=== PATIENT | female | born 1995 | race Caucasian/White ===

== ENCOUNTER 2016-10-17 04:23 | Emergency (ER) | payer OTHER | END 2016-10-17 05:35 | disposition home or self-care (01) | LOC: ER1 04:23 | DX: L50.0 Allergic urticaria (principal); T36.4X5A Adverse effect of tetracyclines, initial encounter | CPT/HCPCS: 99282; Q0163 ==

== ENCOUNTER → 2020-11-08 | Outpatient (CLI) | payer OTHER ==
[~2020-11-08] MED LIST: ACYCLOVIR400 MG PO; AUGMENTIN 875-1 EACH PO; COLACE 100MG C100 MG PO; ERYTHROMYCIN O3.5 GM OD; FLAGYL500 MG PO; IBUPROFEN600 MG PO; KEFLEX CAP 250250 MG PO; NAPROSYN PO; NORCO 5-325 TA1 EACH PO; PERCOCET 5/325 T1 EA PO; PRENATAL VITAM1 EAC6 PO; TORADOL 10 MG T10 MG PO; VALACYCLOVIR1000 MG PO; ZOFRAN8 MG PO
== END ==
LOC: LAB 12:58
DX: Z32.00 Encounter for pregnancy test, result unknown (principal)
CPT/HCPCS: 36415; 84702

== ENCOUNTER 2020-12-13 12:06 | Emergency (ER) | payer OTHER ==
[~2020-12-13 12:06] MED LIST changes: -ERYTHROMYCIN O3.5 GM OD; -KEFLEX CAP 250250 MG PO
[2020-12-13] MEDS ORDERED: ERYTHROMYCIN O3.5 GM OD (14:05)
[2020-12-13] MEDS ORDERED: KEFLEX CAP 250250 MG PO (14:19)
== END 2020-12-13 14:35 | disposition home or self-care (01) ==
LOC: ER1 12:06
DX: S05.01XA Injury of conjunctiva and corneal abrasion without foreign body, right eye, initial encounter (principal); Z88.1 Allergy status to other antibiotic agents; Z88.5 Allergy status to narcotic agent; X58.XXXA Exposure to other specified factors, initial encounter
CPT/HCPCS: 99283

== ENCOUNTER 2021-04-09 15:13 | Emergency (ER) | payer OTHER ==
[~2021-04-09 15:13] MED LIST changes: +ERYTHROMYCIN O3.5 GM OD; +KEFLEX CAP 250250 MG PO
[2021-04-09 15:51] LABS: HEMOGLOBIN 12.6 gm/dl (12.3-15.3); RED BLOOD COUNT 4.16 M/UL (4.00-5.10)
[2021-04-09 16:13] LABS: BUN/CREATININE RATIO 11 (0-10)
[2021-04-09 20:35] LABS: ADENOVIRUS F 40/41 Not Detected (Negative); ASTROVIRUS Not Detected (Negative); CLOSTRIDIUM DIFFICILE TOX A/B Not Detected (Negative); CRYPTOSPORIDIUM Not Detected (Negative); E.COLI 0157 Not Detected (Negative); ENTAMOEBA HISTOLYTICA Not Detected (Negative); ENTEROAGGREGATIVE E.COLI (EAEC Not Detected (Negative); ENTEROPATHOGENIC E.COLI (EPEC) Not Detected (Negative); ENTEROTOXIGENIC E.COLI (ETEC) Not Detected (Negative); GIARDIA LAMBLIA Not Detected (Negative); NOROVIRUS GI/GII Not Detected (Negative); PLESIOMONAS SHIGELLOIDES Not Detected (Negative); ROTOVIRUS A Not Detected (Negative); SALMONELLA Not Detected (Negative); SAPOVIRUS Not Detected (Negative); SHIG/ENTEROINVAS.ECOLI (EIEC) Not Detected (Negative); SHIGA-LIK TOX.PRO.E.COLI (STEC Not Detected (Negative); VIBRIO Not Detected (Negative); VIBRIO CHOLERAE Not Detected (Negative); YERSINIA ENTEROCOLITICA Not Detected (Negative)
[2021-04-10 09:42] LABS: CAMPYLOBACTER DETECTED (Negative)
== END 2021-04-09 18:55 | disposition home or self-care (01) ==
LOC: ER1 15:13
PROVIDERS: Nurse Practitioner; Preventive Medicine Occupational Medicine
DX: O99.891 Other specified diseases and conditions complicating pregnancy (principal); R19.7 Diarrhea, unspecified; Z20.822 Contact with and (suspected) exposure to COVID-19; Z3A.26 26 weeks gestation of pregnancy; Z88.1 Allergy status to other antibiotic agents; Z88.5 Allergy status to narcotic agent; Z90.49 Acquired absence of other specified parts of digestive tract
CPT/HCPCS: 80053; 81001; 85025; 87507; 99284; U0002

== ENCOUNTER 2021-06-10 16:24 | Outpatient (CLI) | payer OTHER | END 2021-06-10 20:53 | disposition home or self-care (01) | LOC: GENOP 16:24 | DX: O47.03 False labor before 37 completed weeks of gestation, third trimester (principal); O98.513 Other viral diseases complicating pregnancy, third trimester; U07.1 COVID-19; Z3A.35 35 weeks gestation of pregnancy | CPT/HCPCS: 81001; 96360; 96361; 96374; J0696; J7120 ==

== ENCOUNTER 2021-07-14 05:29 | Inpatient (IN) | payer OTHER ==
[~2021-07-14] VITALS: Ht 172.7 cm; Wt 93.0 kg
[2021-07-14 06:19] LABS: HEMOGLOBIN 10.7 gm/dl (12.3-15.3); WHITE BLOOD COUNT 9.5 K/UL (4.5-11.0)
[2021-07-14] MEDS ORDERED: COLACE 100MG C100 MG PO (11:41)
[2021-07-14] MEDS ORDERED: HYDROCODON-ACE1 EAC2 PO (11:41)
[2021-07-14] MEDS ORDERED: IBUPROFEN800 MG PO (11:41)
[2021-07-15 06:19] LABS: HEMOGLOBIN 9.5 gm/dl (12.3-15.3)
== END 2021-07-16 16:18 | disposition home or self-care (01) | DRG 787 ==
LOC: OB 05:29
PROVIDERS: ADMIT Obstetrics & Gynecology
PROC: 3E0234Z Introduction of Serum, Toxoid and Vaccine into Muscle, Percutaneous Approach (ICD-10-PCS; 2021-07-13)
PROC: 10D00Z1 Extraction of Products of Conception, Low, Open Approach (ICD-10-PCS; principal; 2021-07-14 07:30)
DX: O34.211 Maternal care for low transverse scar from previous cesarean delivery (principal); O98.52 Other viral diseases complicating childbirth; B00.9 Herpesviral infection, unspecified; Z20.822 Contact with and (suspected) exposure to COVID-19; Z3A.39 39 weeks gestation of pregnancy; Z37.0 Single live birth; Z98.890 Other specified postprocedural states; Z82.49 Family history of ischemic heart disease and other diseases of the circulatory system; Z83.3 Family history of diabetes mellitus; Z80.0 Family history of malignant neoplasm of digestive organs; Z88.5 Allergy status to narcotic agent; Z88.8 Allergy status to other drugs, medicaments and biological substances; Z81.8 Family history of other mental and behavioral disorders; Z90.49 Acquired absence of other specified parts of digestive tract; Z23 Encounter for immunization
CPT/HCPCS: 36415; 81001; 82800; 85014; 85018; 85025; 90715; C9113; J0690; J1200; J2210; J2250; J2274; J2370; J2405; J2590; J3010; J7120